=== PATIENT | female | born 1985 | race Caucasian/White ===

== ENCOUNTER 2017-09-23 21:30 | Emergency (ER) | payer BC ==
--- NOTE | 2017-09-23 21:57 | NUR ---
PT TOLD REGISTRATION WAS LEAVING AND GOING TO AN URGENT CARE.
== END 2017-09-23 21:58 | disposition left against medical advice (07) ==
LOC: ER 21:33
DX: Z53.21 Procedure and treatment not carried out due to patient leaving prior to being seen by health care provider (principal)